=== PATIENT | female | born 1990 | race Caucasian/White ===

== ENCOUNTER 2018-07-13 02:45 | Observation (INO) | payer OTHER ==
[2018-07-13] MEDS ORDERED: ONDANSETRON 4 MG/2 ML VIAL IVP STA (03:20)
[2018-07-13] MEDS: LACTATED RINGERS 1,000 ML IV SCH ×2 (03:20→05:32)
[2018-07-13] MEDS ORDERED: BUTORPHANOL 1 MG/ML 1 ML VIAL IV STA (03:20)
[2018-07-13 04:06] LABS: Basophils % (A) 0 %; Eosinophils % (A) 0 %; HCT 36.5 % (34.0-46.0); HGB 11.5 gm/dL (11.4-16.0); Lymphocytes # (A) 1.2 k/uL (1.0-4.8); Lymphocytes % (A) 9 %; MCH 28.1 pg (25.0-35.0); MCHC 31.5 g/dL (31.0-37.0); Mean Platelet Volume 7.6; Monocytes # (A) 0.8 k/uL (0-1.0); Monocytes % (A) 6 %; Neutrophils # (A) 10.9 k/uL (1.3-7.7); Neutrophils % (A) 83 %; Platelet Count 289 k/uL (150-450); WBC 13.2 k/uL (3.8-10.6)
[2018-07-13 04:08] VITALS: RESP 18
[2018-07-13 04:09] LABS: Appearance,Urine Cloudy (Clear); Bacteria,Urine Few /hpf; Bilirubin,Urine Negative (Negative); Blood,Urine Negative (Negative); Budding Yeast,Urine Occasional /hpf; Color,Urine Yellow; Glucose,Urine (UA) Negative (Negative); Ketones,Urine 3+ (Negative); Leukocyte Esterase,Urine Large (Negative); Mucus,Urine Moderate /hpf; Nitrite,Urine Negative (Negative); Protein,Urine Negative (Negative); RBC,Urine 1 /hpf (0-5); Squamous Epithelial Cell,Urine 9 /hpf (0-4); Urobilinogen,Urine <2.0 mg/dL (<2.0); WBC,Urine 7 /hpf (0-5)
[2018-07-13] MEDS ORDERED: ONDANSETRON 4 MG/2 ML VIAL IVP PRN (04:35)
[2018-07-13] MEDS ORDERED: BUTORPHANOL 1 MG/ML 1 ML VIAL IV PRN (04:35)
[2018-07-13 05:39] VITALS: BMI 26.7
[2018-07-13] MEDS: BUTORPHANOL 1 MG/ML 1 ML VIAL IV PRN ×2 (07:22→11:26)
--- NOTE | 2018-07-13 08:28 | US ---
EXAMINATION TYPE: US OB >= 14 wk fetus DATE OF EXAM: 07/13/2018 COMPARISON: None CLINICAL HISTORY: severe painextreme pain starting Wednesday and increased yesterday, no bleeding TECHNIQUE: Transabdominal scanning GESTATIONAL AGE / DATING Physician Established: (32 weeks/6 days) EDC: 09/01/2018 Dates by LMP: LMP unknown Dates by First Scan: No previous here Dates by Current Scan: (31 weeks/6 days) EDC: 09/08/2018 SURVEY IUP: Single PLACENTA: Anterior PREVIA: No Previa BARBARA: 14.2 cm CERVICAL LENGTH (transabdominal: norm > 3.0cm): bladder not distended for urgent exam BIOMETRY PRESENTATION: Breech LIE: Longitudinal BPD: 8.4 cm 33 weeks / 4 days HC: 29.0 cm 32 weeks / 0 days AC: 30.8 cm 34 weeks / 5 days FL: 5.9 cm 30 weeks / 4 days ESTIMATED WEIGHT IN GRAMS: 2134 grams ESTIMATED WEIGHT IN LBS/OZ: 4 lbs. 11 oz. WEIGHT PERCENTAGE BASED ON ESTABLISHED DATES: 50% HC/AC: 0.9 Normal FL/AC: 19.0 Normal HEART RATE: 131 bpm RHYTHM: Normal IMPRESSION: Limited survey. Single viable intrauterine corresponding to ultrasound age 31 weeks 6 days with estimated date of delivery 09/08/2018. Anterior placenta.
--- NOTE | 2018-07-13 08:31 | US ---
EXAMINATION TYPE: US gallbladder DATE OF EXAM: 07/13/2018 COMPARISON: NONE CLINICAL HISTORY: abd pain, R/O gallstones. extreme abd pain and nausea on patient, 32wks EXAM MEASUREMENTS: Liver Length: 17.3 cm Gallbladder Wall: 0.3 cm CBD: 0.6 cm Right Kidney: 11.4 x 5.1 x 4.4 cm *limited visibility due to enlarged UT Pancreas: limited views appear wnl Liver: intercostal imaging appear wnl Gallbladder: Suspect some dependent intermediate echoes within the gallbladder, gallbladder wall thi ckness is at the upper limit of normal. Evidence for sonographic Boo's sign: no, patient has pain medication just prior to exam and was sleeping CBD: wnl Right Kidney: wnl There is no ascites. IMPRESSION: Exam is limited. No significant abnormalities evident. Common bile duct is borderline dil ated. Question some tumefactive sludge, borderline gallbladder wall thickness, consider gastroenterol ogy consult.
[2018-07-13] MEDS ORDERED: CYCLOBENZAPRINE 10 MG TAB PO STA (11:00)
[2018-07-13] MEDS ORDERED: NALOXONE 0.4 MG/ML 1 ML VIAL IV PRN (12:38)
--- NOTE | 2018-07-13 12:52 | P.HPOB ---
History of Present Illness H&P Date: 07/13/18 Chief Complaint: 32+ weeks, acute left flank pain The patient is a 28-year-old 1 para 0 admitted through triage with acute left flank pain beginning approximately 48 hours prior to presentation. She was awoken in the middle the night with the pain and reports that it waxes and wanes and is severe when it occurs. She has had some nausea and vomiting as result of the pain. She has had her care in [facility] has just recently moved to this area. She has an appointment in our office in the next 1-2 weeks. Her has reportedly been uncomplicated to this point. Laboratory workup done at the time of admission was essentially negative though she was significantly dehydrated with ketones in the urine. Obstetrical ultrasound is benign in nature and ultrasound of the gallbladder was negative. The kidneys were not examined specifically for a stone. She does localize the pain to her left flank right in the area of the kidney. status has been reassuring and she reports normal regular movement. There has been no vaginal bleeding or any other specific issues. Obstetrical history: 1 para 0 currently at 33-0/7 weeks by the EDC provided to us. We do not have a record available at this time and therefore laboratory workup is unavailable from a lab perspective. Gynecologic history: Unremarkable with no history of any infections to include STDs. Review of Systems Review of systems is confined to history of present illness. Past Medical History Past Medical History: Asthma Additional Past Medical History / Comment(s): chronic pain History of Any Multi-Drug Resistant Organisms: None Reported Past Surgical History: No Surgical Hx Reported Past Anesthesia/Blood Transfusion Reactions: No Reported Reaction Past Psychological History: No Psychological Hx Reported Smoking Status: Never smoker Past Drug Use History: None Reported - Past Family History Mother History Unknown: Yes Family Medical History: Diabetes Mellitus Medications and Allergies Home Medications Medication Instructions Recorded Confirmed Type Pnv No.95/Ferrous Fum/Folic AC 1 each PO DAILY 07/13/18 07/13/18 History [ Multivitamin Tablet] Allergies Allergy/AdvReac Type Severity Reaction Status Date / Time No Known Allergies Allergy Verified 07/13/18 03:18 Exam Vital Signs Temp Pulse Resp BP Pulse Ox 07/13/18 03:50 97.8 F 90 18 135/60 96 Intake and Output 07/12/18 07/13/18 07/13/18 22:59 06:59 14:59 Other: # Voids 3 Weight 68.492 kg In general, this is a well-developed, well-nourished white female in significant discomfort. Her heart has a regular rhythm and rate without murmur. Her lungs are clear to auscultation bilaterally in all fierro. Her abdomen is gravid, nondistended, has normal active bowel sounds, soft, nontender , and without any palpable masses aside from uterine fundus. Her extremities are without any cyanosis, clubbing, or edema and are nontender to palpation bilaterally. Her left flank does have fairly significant tenderness the but not to palpation. There is some pain that radiates around the side and towards the groin. Digital cervical examination performed by the nursing staff last night demonstrated her cervix to be closed, thick, and high. Results Result Diagrams: 07/13/18 03:20 Abnormal Lab Results - Last 24 Hours (Table) 07/13/18 07/13/18 Range/Units 03:15 03:20 WBC 13.2 H (3.8-10.6) k/uL Neutrophils # 10.9 H (1.3-7.7) k/uL Urine Appearance Cloudy H (Clear) Urine Ketones 3+ H (Negative) Ur Leukocyte Esterase Large H (Negative) Urine WBC 7 H (0-5) /hpf Ur Squamous Epith Cells 9 H (0-4) /hpf Urine Bacteria Few H (None) /hpf Urine Mucus Moderate H (None) /hpf Urine Yeast (Budding) Occasional H (None) /hpf Microbiology - Last 24 Hours (Table) 07/13/18 03:15 Urine Culture - Preliminary Urine,Clean Catch Assessment and Plan (1) Flank pain Current Visit: Yes Status: Acute Code(s): R10.9 - UNSPECIFIED ABDOMINAL PAIN SNOMED Code(s): 115248281 (2) with 32 completed weeks gestation Current Visit: Yes Status: Acute Code(s): Z3A.32 - 32 WEEKS GESTATION OF SNOMED Code(s): 8337063 Plan: The patient has been admitted for management of pain. She has had relatively aggressive hydration and in my opinion, likely has developed nephrolithiasis. Aggressive hydration will be continued. She will be allowed a regular diet. Given her degree of pain and some requirement for pain medications, a Dilaudid COAGULANT DIPPER has been ordered. I also will strain her urine. Asspecific evaluation of the kidneys has been performed, I have ordered a renal ultrasound to attempt to rule out nephrolithiasis. For the time being, she will have continuous monitoring. There does not appear to be any particular concerns. Should the pain continued to be severe, there is consideration for urology consultation. Another consideration would be a one-shot IVP as a further attempt to image the urologic collection system.
[2018-07-13] MEDS: HYDROmorphone PCA 5 MG/25 ML SYRINGE IV PRN (13:22)
--- NOTE | 2018-07-13 14:02 | US ---
EXAMINATION TYPE: US kidneys/renal and bladder DATE OF EXAM: 07/13/2018 COMPARISON: Ultrasound gallbladder same date CLINICAL HISTORY: Acute left flank pain, rule out nephrolithiasis. Left flank pain. 32 weeks pregnan t. EXAM MEASUREMENTS: Right Kidney: 10.5 x 5.0 x 4.3 cm Left Kidney: 11.0 x 5.9 x 5.3 cm Right Kidney: No hydronephrosis or masses seen, suspect extrarenal pelvis Left Kidney: Mild hydronephrosis. Unable to see sign of obstruction due to overlying bowel gas. Echog enic non-shadowing focus seen in lower pole = 0.5 cm. Bladder: mildly distended, wnl Bilateral Jets seen No masses are identified. The urinary bladder is anechoic. Bilateral ureteral jets are seen. IMPRESSION: Mild left hydronephrosis.
[2018-07-13 23:58] VITALS: BP 106/52; PULSE 101; TEMP 98.2
[2018-07-14] MEDS: LACTATED RINGERS 1,000 ML IV SCH ×10 (00:02→16:17)
[2018-07-14] MEDS: HYDROmorphone PCA 5 MG/25 ML SYRINGE IV PRN (02:52)
[2018-07-14] MEDS ORDERED: SIMETHICONE 80 MG CHEWABLE PO PRN (07:17)
[2018-07-14] MEDS ORDERED: Acetaminophen-Codeine 300-30mg TAB PO PRN (08:41)
--- NOTE | 2018-07-14 08:45 | P.PN ---
Subjective Progress Note Date: 07/14/18 Principal diagnosis: 33 weeks, acute left flank pain, presumptive nephrolithiasis The patient reports that her significant pain has become much less prominent though she still has some pain. The pain has now radiated into the left groin consistent with the passage of the stone through the ureter. She denies any recent nausea and vomiting. She also has some generalized lower abdominal pain but reports that she has some constipation as well. She is tolerating both food and liquids though has not eaten in quite some time. The fetus remains active with no apparent concerns. Objective - Vital Signs Vital signs: Vital Signs Temp 98.2 F 07/13/18 23:55 Pulse 101 H 07/13/18 23:55 Resp 18 07/13/18 23:55 BP 106/52 07/13/18 23:55 Pulse Ox 98 07/13/18 12:38 Intake & Output 07/13/18 07/14/18 07/14/18 18:59 06:59 18:59 Intake Total 250 1650 Output Total 1050 Balance 250 600 Intake: Intake, IV Titration 450 Amount Lactated Ringers 1,000 ml 450 @ 150 mls/hr IV .Q6H40M [facility] Rx#:[id number] Oral 250 1200 Output: Urine 1050 - Exam In general, this is a well-developed, well-nourished white female in no acute distress. Her abdomen is gravid, nondistended, is soft, nontender, and without any palpable masses aside from uterine fundus. She has no specific flank pain to palpation though she reports pain in this area and in the left groin. Her extremities are without any cyanosis, clubbing, or edema and are nontender to palpation bilaterally. Cervical examination is deferred. - Labs CBC & Chem 7: 07/13/18 03:20 Labs: Microbiology - Last 24 Hours (Table) 07/13/18 03:15 Urine Culture - Preliminary Urine,Clean Catch Assessment and Plan (1) Flank pain Current Visit: Yes Status: Acute Code(s): R10.9 - UNSPECIFIED ABDOMINAL PAIN SNOMED Code(s): 498539888 (2) with 32 completed weeks gestation Current Visit: Yes Status: Acute Code(s): Z3A.32 - 32 WEEKS GESTATION OF SNOMED Code(s): 8245598 Plan: The presumptive diagnosis of nephrolithiasis remains in place. The imaging studies by ultrasound were equivocal, but her clinical history is consistent with this diagnosis. We will continue aggressive hydration but remove the CONVERTING TECHNICIAN and try oral pain medications. Tylenol 3 has been prescribed. I have strongly encouraged her to ambulate in the halls today. I also encouraged her to try solid food. Should she be able to ambulate, manage her pain orally, and tolerate a regular diet, she will likely be discharged home this afternoon to continue aggressive home oral hydration and then follow-up in the office.
[2018-07-14] MEDS ORDERED: SIMETHICONE 80 MG CHEWABLE PO SCH (09:00)
[2018-07-14] MEDS: Acetaminophen-Codeine 300-30mg TAB PO PRN ×3 (10:30→18:09)
[2018-07-14] MEDS ORDERED: BISACODYL 10 MG SUPP RECTAL STA (11:59)
[2018-07-14] MEDS ORDERED: SENNOSIDES-DOCUSATE SODIUM 1 EACH TAB PO STA (15:56)
--- NOTE | 2018-07-14 18:00 | P.DS ---
Providers Date of admission: 07/13/18 04:53 Expected date of discharge: 07/14/18 Attending physician: Cherelle Escalera Primary care physician: Stated None - Discharge Diagnosis(es) (1) Flank pain Current Visit: Yes Status: Acute (2) with 32 completed weeks gestation Current Visit: Yes Status: Acute Hospital Course: The patient is a 28-year-old 1 para 0 admitted through triage with severe and acute left flank pain beginning approximately 24-48 hours prior to presentation. She is otherwise at approximately 33 weeks gestation at this time and has had care elsewhere and recently moved to this area. She does have an office appointment within the next week or 2 but has only just presented to [place]. Given her degree of pain, she was admitted for observation. There were no signs of any concerns nor any specific concerns. OB ultrasound was entirely negative. Ultrasound of the liver was negative. Ultimately the ultrasound of the kidneys suggested the possibility of a stone in the left eye was. Discussion with the patient demonstrated the pain to initially be absolutely in the left flank and then radiating around the hip crest towards the groin in the direct path of the left ureter. The diagnosis of presumptive nephrolithiasis was made. She was started on a Dilaudid LINING PARTS SEWER and continued with aggressive IV hydration. Approximately 12 hours after admission she had significant decrease in her pain acuity. She was able to be up and the moving about and began to tolerate both liquids and solids. By the morning of hospital day #2, her LINING PARTS SEWER was discontinued and she was placed on oral Tylenol No. 3 which she tolerated. For the entirety of the remainder of that day she used only 2 tablets of Tylenol No. 3. heart tones remained reassuring and the patient reported significant clinical improvement. As she was performing all activities of daily living, she was deemed stable for discharge and was discharged home to follow-up in the office next week for a recheck of the kidney stones and the following week as previously scheduled for routine OB intake. She is to call for any significantly increased pain or concerns. She understood her instructions and agrees follow up as noted above. Discharge medications included continued vitamins as well as a prescription for Tylenol 3, 1- 2 by mouth every 6 hours when necessary pain, #12 dispensed with no refills. Procedures: #1. IV hydration #2. IV pain control #3. Renal ultrasound #4. Gallbladder ultrasound #5. Obstetrical ultrasound Patient Condition at Discharge: Stable Plan - Discharge Summary New Discharge Prescriptions: No Action Pnv No.95/Ferrous Fum/Folic AC [ Multivitamin Tablet] 1 each PO DAILY Discharge Medication List Pnv No.95/Ferrous Fum/Folic AC [ Multivitamin Tablet] 1 each PO DAILY [History] Follow up Appointment(s)/Referral(s): Stuart Mary MD [STAFF PHYSICIAN] - 1 Week Discharge Disposition: HOME SELF-CARE
== END 2018-07-14 18:40 | disposition home or self-care (01) ==
LOC: FBPOP 02:45 → 4FBP 04:53
PROVIDERS: ADMIT Obstetrics & Gynecology; ATTEND Obstetrics & Gynecology
DX: O99.89 Other specified diseases and conditions complicating pregnancy, childbirth and the puerperium (principal); N13.30 Unspecified hydronephrosis; O99.283 Endocrine, nutritional and metabolic diseases complicating pregnancy, third trimester; E86.0 Dehydration; O99.513 Diseases of the respiratory system complicating pregnancy, third trimester; J45.909 Unspecified asthma, uncomplicated; K59.00 Constipation, unspecified; Z3A.32 32 weeks gestation of pregnancy; Z83.3 Family history of diabetes mellitus
CPT/HCPCS: 59025; 96376 ×2; 99214; 96374; 96375; 85025; 81001; 87086; 76805; 76770; 76705; G0378 ×2; J0595; J2405; J1170 ×2; 96361

== ENCOUNTER 2018-07-14 23:35 | Inpatient (IN) | payer OTHER ==
[2018-07-14] MEDS ORDERED: LACTATED RINGERS 1,000 ML IV SCH (23:45)
[2018-07-14] MEDS ORDERED: HYDROmorphone 1 MG/ML 1 ML SYRINGE IVP STA (23:58)
[2018-07-15] MEDS: LACTATED RINGERS 1,000 ML IV SCH ×4 (00:39→16:33)
[2018-07-15 01:53] LABS: Appearance,Urine Clear (Clear); Bacteria,Urine Occasional /hpf; Bilirubin,Urine Negative (Negative); Blood,Urine Negative (Negative); Color,Urine Yellow; Glucose,Urine (UA) Negative (Negative); Ketones,Urine 2+ (Negative); Leukocyte Esterase,Urine Small (Negative); Nitrite,Urine Negative (Negative); Protein,Urine Negative (Negative); RBC,Urine 1 /hpf (0-5); Specific Gravity,Urine 1.005 (1.001-1.035); Squamous Epithelial Cell,Urine 1 /hpf (0-4); Urobilinogen,Urine <2.0 mg/dL (<2.0); WBC,Urine 3 /hpf (0-5)
[2018-07-15] MEDS ORDERED: HYDROmorphone 1 MG/ML 1 ML SYRINGE IVP STA (03:49)
[2018-07-15] MEDS ORDERED: NALOXONE 0.4 MG/ML 1 ML VIAL IV PRN (06:45)
[2018-07-15] MEDS ORDERED: HYDROmorphone PCA 5 MG/25 ML SYRINGE IV PRN (06:45)
--- NOTE | 2018-07-15 07:41 | P.GSCN ---
History of Present Illness Consult date: 07/15/18 History of present illness: The patient is a 28 year Old female, 1 para 0, gestation 33 weeks. He for several days has had left flank pain. She presented to Dr. Barone who suspected she had a stone. An ultrasound showed some mild hydronephrosis on the left side. There is no hydronephrosis on the right side. In such that she came back to the hospital. No history of stones. Her urine is fairly nonspecific and not infected. SHe is constipated. Review of Systems All systems: negative - Constitutional Denies fever, Denies weight loss - EENT Eyes: denies blurred vision Ears, nose, mouth and throat: Denies dysphagia - Cardiovascular Denies chest pain, Denies shortness of breath - Respiratory Denies cough, Denies 7 - Gastrointestinal Reports as per HPI - Genitourinary Genitourinary: Denies dysuria, Denies hematuria - Integumentary Denies rash, Denies unusual bruising - Neurological Denies headaches, Denies syncope - Hematologic/Lymphatic Denies easy bleeding, Denies easy bruising Past Medical History Past Medical History: Asthma Additional Past Medical History / Comment(s): chronic pain History of Any Multi-Drug Resistant Organisms: None Reported Past Surgical History: No Surgical Hx Reported Past Anesthesia/Blood Transfusion Reactions: No Reported Reaction Smoking Status: Never smoker - Past Family History Mother History Unknown: Yes Family Medical History: Diabetes Mellitus Medications and Allergies Home Medications Medication Instructions Recorded Confirmed Type Pnv No.95/Ferrous Fum/Folic AC 1 each PO DAILY 07/13/18 07/14/18 History [ Multivitamin Tablet] Acetaminophen-Codeine 300-30mg 2 tab PO Q6H PRN 07/14/18 07/14/18 History [Tylenol w/codeine #3] Allergies Allergy/AdvReac Type Severity Reaction Status Date / Time No Known Allergies Allergy Verified 07/14/18 23:57 Surgical - Exam Vital Signs Temp Pulse Resp BP Pulse Ox 98.2 F 83 18 126/81 97 07/14/18 23:58 07/14/18 23:58 07/14/18 23:58 07/14/18 23:58 07/14/18 23:58 - General well developed, well nourished, moderate distress - Eyes PERRL - ENT no hearing loss - Neck trachea midline - Respiratory normal expansion, normal respiratory effort - Cardiovascular Rhythm: regular - Abdomen 33 weeks gestation Abdomen: soft, tender - Integumentary no rash - Neurologic normal coordination, normal sensation - Musculoskeletal normal gait, normal posture - Psychiatric oriented to time, oriented to person, oriented to place, speech is normal, memory intact Results - Labs Abnormal Lab Results - Last 24 Hours (Table) 07/15/18 Range/Units 01:08 Urine Ketones 2+ H (Negative) Ur Leukocyte Esterase Small H (Negative) Urine Bacteria Occasional H (None) /hpf - Imaging US - kidney/bladder: report reviewed, image reviewed Assessment and Plan Assessment: Impression: Left-sided flank pain probably due to ureteral calculus versus constipation. 33 week . Recommendations: Your doing with IV fluids and pain control. Once her pain is controlled she can be discharged home from urologic standpoint. I prefer not to intervene if it all possible however the pain persists she may need her testing and/or potential stone manipulation to control the discomfort. I would work on her bowels to make sure that is not contributing to this discomfort.
[2018-07-15 08:17] VITALS: BMI 26.7
--- NOTE | 2018-07-15 11:26 | P.HPOB ---
History of Present Illness H&P Date: 07/15/18 Chief Complaint: 33+ weeks, acute left flank pain, presumptive nephrolithiasis The patient is a 28-year-old 1 para 0 admitted with acute left flank pain starting approximately 5 days ago. She has just recently moved from the [facility] where she had previous obstetrical care and has an appointment scheduled with our office but has not yet been seen there. Her pain began acutely on Wednesday and she was seen in [place] on Wednesday at which time no intervention was undertaken. She then traveled to the [place] area where she has moved and had the pain continued to be significant leading to presentation to triage. She was admitted for approximately 48 hours where she was treated aggressively with hydration and with a ADULT LITERACY INSTRUCTOR for pain control. Her pain had significantly improved yesterday and she was deemed stable for discharge and was discharged home with oral pain medications. Approximately 6- 8 hours after discharge, her pain became more acute and oral pain medications were unable to control the pain. She returned to the hospital at which time she was readmitted. Urinalysis demonstrated moderate dehydration. She also complains of fairly significant constipation for which she did receive a Dulcolax suppository during her previous admission. Results were fairly minimal. At this time, she has less significant pain but continues to complain of moderate discomfort. It does seem to be exacerbated by activity. She has not had a bowel movement by her report since Wednesday though, as noted above, she did have some results from a Dulcolax suppository yesterday. Urology has seen the patient and agrees with the plan as it will be outlined below. The patient denies any psychosocial concerns and does have a safe environment at home though there still in the process of unpacking. Obstetrical history: 1 para 0 with current statistics listed above. She has no reported complications prior to this though we are not in receipt of her previous records. They will be obtained today if at all possible. Gynecologic history: Unremarkable with no history of any infections to include STDs. Review of Systems Review of systems is confined to history of present illness. Past Medical History Past Medical History: Asthma Additional Past Medical History / Comment(s): chronic pain History of Any Multi-Drug Resistant Organisms: None Reported Past Surgical History: No Surgical Hx Reported Additional Past Surgical History / Comment(s): wisdom teeth removal Past Anesthesia/Blood Transfusion Reactions: No Reported Reaction Smoking Status: Never smoker - Past Family History Mother History Unknown: Yes Family Medical History: Diabetes Mellitus Medications and Allergies Home Medications Medication Instructions Recorded Confirmed Type Pnv No.95/Ferrous Fum/Folic AC 1 each PO DAILY 07/13/18 07/14/18 History [ Multivitamin Tablet] Acetaminophen-Codeine 300-30mg 2 tab PO Q6H PRN 07/14/18 07/14/18 History [Tylenol w/codeine #3] Allergies Allergy/AdvReac Type Severity Reaction Status Date / Time No Known Allergies Allergy Verified 07/14/18 23:57 Exam Vital Signs Temp Pulse Resp BP Pulse Ox 07/15/18 06:51 98.3 F 84 16 99/55 96 07/14/18 23:58 98.2 F 83 18 126/81 97 Intake and Output 07/14/18 07/15/18 07/15/18 22:59 06:59 14:59 Intake Total 1999 Balance 1999 Intake: Intake, IV Titration 2000 Amount Lactated Ringers 1,000 ml 1000 @ 150 mls/hr IV .Q6H40M [facility] Rx#:[id number] Lactated Ringers 1,000 ml 1000 @ 999 mls/hr IV .Q1H1M [facility] Rx#:[id number] Other: # Voids 1 Weight 68.492 kg In general, this is a well-developed, well-nourished white female in no acute distress. Her heart has a regular rhythm and rate without murmur. Her lungs are clear to auscultation bilaterally in all fierro. Her abdomen is gravid, nondistended, has normal active bowel sounds, soft, nontender, and without any palpable masses aside from uterine fundus. Her extremities without any cyanosis , clubbing, or edema and are nontender to palpation bilaterally. Her back demonstrates no significant CVA tenderness though she does report the course of the pain is in the general course of the left ureter. Results Abnormal Lab Results - Last 24 Hours (Table) 07/15/18 Range/Units 01:08 Urine Ketones 2+ H (Negative) Ur Leukocyte Esterase Small H (Negative) Urine Bacteria Occasional H (None) /hpf Assessment and Plan (1) 33 weeks gestation of Current Visit: Yes Status: Acute Code(s): Z3A.33 - 33 WEEKS GESTATION OF SNOMED Code(s): 90664560 (2) Flank pain Current Visit: Yes Status: Acute Code(s): R10.9 - UNSPECIFIED ABDOMINAL PAIN SNOMED Code(s): 903899567 Plan: Urology consult has been obtained and they agree with the plan. There is no implant intervention from their perspective at this time. We will continue with aggressive rehydration and IV pain control until such time as the stone passes or the pain is relieved in either case. Some consideration could be given to a one-shot IVP which would only serve to confirm the diagnosis of our current working diagnosis. I will retrieve the records from her previous certified alcohol drug counselor today. We will work towards controlling her pain or early and discharging her at the earliest possible time. We will continue to strain her urine. A CBC is pending at this time. Urinalysis failed to demonstrate any blood in the urine but to history and physical findings are consistent with the diagnosis of nephrolithiasis. I will also begin her on treatment with MiraLAX daily as well as stool softeners.
[2018-07-15 11:34] LABS: Basophils % (A) 0 %; Eosinophils # (A) 0.1 k/uL (0-0.7); Eosinophils % (A) 0 %; HCT 33.9 % (34.0-46.0); HGB 10.6 gm/dL (11.4-16.0); Hypochromasia Moderate; Lymphocytes # (A) 1.3 k/uL (1.0-4.8); Lymphocytes % (A) 10 %; MCH 29.1 pg (25.0-35.0); MCHC 31.2 g/dL (31.0-37.0); MCV 93.2 fL (80.0-100.0); Mean Platelet Volume 9.6; Monocytes # (A) 1.2 k/uL (0-1.0); Monocytes % (A) 9 %; Neutrophils % (A) 78 %; Platelet Count 243 k/uL (150-450); RBC 3.64 m/uL (3.80-5.40); RDW 14.3 % (11.5-15.5); WBC 12.9 k/uL (3.8-10.6)
[2018-07-15] MEDS: POLYETHYLENE GLYCOL 3350 17 GM POWD.PACK PO SCH (12:07)
[2018-07-15] MEDS: SENNOSIDES 8.6 MG TAB PO SCH (21:47)
[2018-07-16] MEDS: LACTATED RINGERS 1,000 ML IV SCH ×2 (00:15→08:11)
--- NOTE | 2018-07-16 09:35 | P.PN ---
Progress Note - Text Progress Note Date: 07/16/18 The patient is afebrile. She continues to have intermittent severe pain in the left flank however at times her pain is in the mid back and right side as well. The patient is presumed to have her pain on the basis of a left ureteral calculus and I discussed options including further observation, placement of a double-J catheter or ureteroscopy with lithotripsy with her. Due to the persistence of her pain a KUB will be obtained today. If she has a small distal ureteral calculus I believe that further observation would be the best option but if her pain is from a larger calculus more proximally then placement of a double-J catheter may be a better option.
[2018-07-16] MEDS: SENNOSIDES 8.6 MG TAB PO SCH ×2 (10:42→20:50)
[2018-07-16] MEDS: POLYETHYLENE GLYCOL 3350 17 GM POWD.PACK PO SCH (10:42)
--- NOTE | 2018-07-16 10:42 | XR ---
EXAMINATION TYPE: XR KUB , 3 VIEWS DATE OF EXAM ORDERED: 07/16/2018 HISTORY: Left hydronephrosis-possible left ureteral calculu. COMPARISON: None. FINDINGS: There are dilated loops of colon in the upper abdomen with several air-fluid levels. There is no free air. There are bones noted within the pelvis. The study is such that renal calculi would not be visualized. There is a right-sided pleural effusion and right basilar airspace disease. IMPRESSION: 1. . 2. RIGHT PLEURAL EFFUSION AND RIGHT BASILAR AIRSPACE DISEASE. 3. FINDINGS MAY REFLECT COLONIC ILEUS OR BE THE RESULT OF . 4. THIS STUDY IS NOT ADEQUATE TO EXCLUDE RENAL CALCULI.
--- NOTE | 2018-07-16 10:58 | P.PN ---
Subjective Progress Note Date: 07/16/18 Principal diagnosis: Flank and back pain She reports ongoing episodes of severe left flank pain now radiating into the right back area. The EXCHANGE TROUBLE SHOOTER dilated does not improve her pain. She denies uterine cramping, vaginal bleeding, leakage of fluids or hematuria. She has still not yet had a bowel movement despite MiraLAX and stool softeners. Good movement. KUB is unable to show presence or absence of renal calculi however there is a right pleural effusion and possible right airspace disease. She does report since her admission some pain with inspiration. She denies shortness of breath or cough. Objective - Vital Signs Vital signs: Vital Signs Temp 97.7 F 07/16/18 07:44 Pulse 80 07/16/18 07:44 Resp 18 07/16/18 07:44 BP 105/68 07/16/18 07:44 Pulse Ox 93 L 07/16/18 07:44 Intake & Output 07/15/18 07/16/18 07/16/18 18:59 06:59 18:59 Output Total 375 1200 Balance -375 -1200 Output: Urine 375 1200 Other: # Voids 500 2 - Constitutional General appearance: Present: average body habitus, mild distress - Respiratory Details: Breathing not labored - Gastrointestinal Gastrointestinal Comment(s): Abdomen gravid and soft. Tenderness to palpation along the left flank and axillary line. Mild fundal tenderness. She did have an episode of pain while I was examining her and her uterus felt soft, not consistent with a contraction. - Psychiatric Psychiatric: Present: appropriate affect - Labs CBC & Chem 7: 07/15/18 11:08 Labs: Abnormal Lab Results - Last 24 Hours (Table) 07/15/18 Range/Units 11:08 WBC 12.9 H (3.8-10.6) k/uL RBC 3.64 L (3.80-5.40) m/uL Hgb 10.6 L (11.4-16.0) gm/dL Hct 33.9 L (34.0-46.0) % Neutrophils # 10.0 H (1.3-7.7) k/uL Monocytes # 1.2 H (0-1.0) k/uL - Imaging and Cardiology Abdominal x-ray: report reviewed, image reviewed Assessment and Plan (1) Pleural effusion Narrative/Plan: Decrease aggressive IV fluid rehydration, to avoid fluid overload in the setting of third trimester . Pulse ox and respiratory status normal at this time. Consider medicine consultation. Plan repeat chest x-ray in the a.m. Current Visit: Yes Status: Acute Code(s): J90 - PLEURAL EFFUSION, NOT ELSEWHERE CLASSIFIED SNOMED Code(s): 61806270 (2) 33 weeks gestation of Narrative/Plan: status currently reassuring by external monitoring. No evidence of labor. Current Visit: Yes Status: Acute Code(s): Z3A.33 - 33 WEEKS GESTATION OF SNOMED Code(s): 06747274 (3) Flank pain Narrative/Plan: Pain most consistent with renal colic. Appreciate Dr. Holm and Dr. timo valenzuela's input. KUB findings are as above. As her pain does not seem to be improving and KUB is nondiagnostic for renal calculus, I agree with plan for consideration of left ureteral stenting for pain control. Will defer ultimately to their opinion on the matter. I have discussed with the patient pros and cons of the procedure and she agrees to proceed if that is what is recommended. Current Visit: Yes Status: Acute Code(s): R10.9 - UNSPECIFIED ABDOMINAL PAIN SNOMED Code(s): 302563799
[2018-07-16] MEDS ORDERED: LACTATED RINGERS 500 ML IV SCH (11:00)
[2018-07-16] MEDS: BUTORPHANOL 1 MG/ML 1 ML VIAL IV PRN ×4 (12:34→20:43)
--- NOTE | 2018-07-16 12:34 | US ---
EXAMINATION TYPE: US venous doppler duplex LE DATE OF EXAM: 07/16/2018 11:16 AM COMPARISON: NONE CLINICAL HISTORY: 33 wk preg r/o DVT, extensive leg swelling SIDE PERFORMED: Bilateral TECHNIQUE: The lower extremity deep venous system is examined utilizing real time linear array sonog wicho with graded compression, doppler sonography and color-flow sonography. VESSELS IMAGED: External Iliac Vein (EIV) Common Femoral Vein Deep Femoral Vein Greater Saphenous Vein * Femoral Vein Popliteal Vein Small Saphenous Vein * Proximal Calf Veins (* superficial vessels) Right Leg: Negative for DVT Left Leg: Negative for DVT Patient has severe swelling in legs with pitting edema. No popliteal fossa lesion is seen. IMPRESSION: THIS EXAMINATION IS NEGATIVE FOR DVT IN BOTH LEGS.
--- NOTE | 2018-07-16 17:41 | ECHOF ---
Referral Reason:33 wk preg, pleural effusion, r/o cardiomyopathy MEASUREMENTS -------- HEIGHT: 160.0 cm WEIGHT: 68.5 kg BP: IVSd: 0.9 cm (0.6 - 1.1) LVIDd: 4.6 cm (3.9 - 5.3) LVPWd: 1.1 cm (0.6 - 1.1) IVSs: 1.4 cm LVIDs: 2.9 cm LVPWs: 1.4 cm LA Diam: 3.8 cm (2.7 - 3.8) RVIDd: 2.3 cm (< 3.3) Ao Diam: 2.1 cm (2.0 - 3.7) LA Diam: 3.5 cm (2.7 - 3.8) AV Cusp: 1.5 cm (1.5 - 2.6) EPSS: 0.3 cm MV E Willis: 1.09 m/s MV DecT: 219 ms MV A Willis: 0.71 m/s MV E/A Ratio: 1.53 RAP: 5.00 mmHg RVSP: 41.17 mmHg MV EF SLOPE: 141.05 mm/s (70 - 150) MV EXCURSION: 15.88 mm (> 18.000) FINDINGS -------- Sinus rhythm. This was a technically good study. LV size, wall thickness and systolic function are normal, with an EF greater than 55%. The left alysa tricular size is normal. The right ventricle is normal in size. The left atrial size is normal. The right atrial size is normal. The aortic valve is trileaflet, and appears structurally normal. No aortic stenosis or regurgitation. Mild mitral regurgitation is present. Zsdw-yq-towwnstm tricuspid regurgitation present. There is mild pulmonary hypertension. The right ventricular systolic pressure, as measured by Doppler, is 41.17mmHg. Trace/mild (physiologic) pulmonic regurgitation. The aortic root size is normal. There is a small, generalized pericardial effusion present. CONCLUSIONS -------- 1. LV size, wall thickness and systolic function are normal, with an EF greater than 55%. 2. The left ventricular size is normal. 3. The right ventricle is normal in size. 4. The left atrial size is normal. 5. The right atrial size is normal. 6. The aortic valve is trileaflet, and appears structurally normal. No aortic stenosis or regurgitati on. 7. Mild mitral regurgitation is present. 8. Rkrd-tl-roqxunqq tricuspid regurgitation present. 9. There is mild pulmonary hypertension. 10. The right ventricular systolic pressure, as measured by Doppler, is 41.17mmHg. 11. Trace/mild (physiologic) pulmonic regurgitation. 12. The aortic root size is normal. 13. There is a small, generalized pericardial effusion present. SIGN FABRICATOR: Deedee Mc RDCS
[2018-07-16] MEDS: BISACODYL 10 MG SUPP RECTAL SCH (18:03)
[2018-07-17] MEDS: BUTORPHANOL 1 MG/ML 1 ML VIAL IV PRN (02:08)
--- NOTE | 2018-07-17 10:33 | P.PN ---
Progress Note - Text Progress Note Date: 07/17/18 The patient says that she is much more comfortable than she was yesterday and has had only mild discomfort in her left flank through the night. She is hungry and wants to go home if possible. Duplex ultrasound and echocardiogram were both negative. I reviewed the patient's KUB. This study was underpenetrated but a definite calculus was not visualized along the course of the left ureter. From my standpoint if the patient is comfortable she could be discharged on analgesics however she is aware that if her pain is from a ureteral calculus it may recur.
--- NOTE | 2018-07-17 10:36 | P.DS ---
Providers Date of admission: 07/15/18 06:46 Expected date of discharge: 07/17/18 Attending physician: Stuart Mary Consults: 07/15/18 06:49 Consult Physician Routine Consulting Provider: Fito Valdes Consult Reason/Comments: rule out kidney stone Do you want consulting provider notified?: Yes Primary care physician: Stated None - Discharge Diagnosis(es) (1) Pleural effusion Current Visit: Yes Status: Acute (2) 33 weeks gestation of Current Visit: Yes Status: Acute (3) Flank pain Current Visit: Yes Status: Acute Hospital Course: This is a 28-year-old 1 para 0 woman at 33+ weeks gestation who was admitted with persistent worsening left flank pain. She had had a recent previous admission for the same symptoms and was diagnosed with presumptive renal colic, probable passing kidney stone. She failed outpatient management with oral pain medications and repaired presented. On admission she complained of severe waxing and waning left sided abdominal pain that occasionally it into the right back area. She denied vaginal bleeding. She is constipated. She is not had a bowel movement for 5 days. She denied contractions and reported good movement. She was given aggressive IV fluid management and pain control with IV Dilaudid BEVERAGE INSPECTION MACHINE TENDER. She continued to have pain and a KUB was ordered to assess for a large obstructing kidney stone. This was nondiagnostic for kidney stone however she was noted to have a right pleural effusion. She was therefore worked up for DVTs and possible cardiomyopathy of . She had normal bilateral lower extremity Dopplers. Echocardiogram was essentially normal although there was a small pericardial effusion. Her IV fluids were discontinued. Her vital signs were stable and her oxygen saturations were greater than 95%. She is not tachycardic. Some thought was given to possible ureteral stent placement to empirically treat her pain however by this morning she reports significant decrease in her pain. She was able to sleep well overnight and did not require IV Stadol. She was passing some gas and had a small bowel movement. Based on this clinical improvement the decision was made to hold off on any urologic procedures. monitoring throughout her stay was reassuring. She had irregular contractions however no concerns for labor. She was therefore discharged home for close follow-up in the office. Precautions were reviewed. She is instructed to return with any vaginal bleeding, severe abdominal or pelvic pain, leakage of fluids or decreased movement. Bowel management is reviewed with her and she is encouraged to continue with high- fiber diet, stool softeners and MiraLAX or Dulcolax suppository when necessary. She is recommended to continue to wear her TOMMY hose for DVT prophylaxis. Pertinent Studies: KUB, echocardiogram, lower extremity Doppler studies Patient Condition at Discharge: Good Plan - Discharge Summary New Discharge Prescriptions: No Action Pnv No.95/Ferrous Fum/Folic AC [ Multivitamin Tablet] 1 each PO DAILY Acetaminophen-Codeine 300-30mg [Tylenol w/codeine #3] 2 tab PO Q6H PRN PRN Reason: Pain Discharge Medication List Pnv No.95/Ferrous Fum/Folic AC [ Multivitamin Tablet] 1 each PO DAILY [History] Acetaminophen-Codeine 300-30mg [Tylenol w/codeine #3] 2 tab PO Q6H PRN 07/14/18 [History] Follow up Appointment(s)/Referral(s): Sutart Mary MD [STAFF PHYSICIAN] - 1-2 Days Discharge Disposition: HOME SELF-CARE
[2018-07-17] MEDS: SENNOSIDES 8.6 MG TAB PO SCH (10:51)
[2018-07-17] MEDS: POLYETHYLENE GLYCOL 3350 17 GM POWD.PACK PO SCH (10:52)
[2018-07-17] MEDS: BISACODYL 10 MG SUPP RECTAL SCH (10:52)
[2018-07-17 11:28] VITALS: BP 128/76; PULSE 77; RESP 18; TEMP 98.3
== END 2018-07-17 11:15 | disposition home or self-care (01) | DRG 781 ==
LOC: FBPOP 23:35 → 4FBP 07-15 06:46
PROVIDERS: ADMIT Obstetrics & Gynecology; ATTEND Obstetrics & Gynecology
DX: O99.89 Other specified diseases and conditions complicating pregnancy, childbirth and the puerperium (principal); O26.833 Pregnancy related renal disease, third trimester; N13.2 Hydronephrosis with renal and ureteral calculous obstruction; J90 Pleural effusion, not elsewhere classified; I31.3 Pericardial effusion (noninflammatory); E86.0 Dehydration; R10.9 Unspecified abdominal pain; O12.03 Gestational edema, third trimester; G89.29 Other chronic pain; O99.513 Diseases of the respiratory system complicating pregnancy, third trimester; J45.909 Unspecified asthma, uncomplicated; O99.283 Endocrine, nutritional and metabolic diseases complicating pregnancy, third trimester; O99.613 Diseases of the digestive system complicating pregnancy, third trimester; K59.00 Constipation, unspecified; Z3A.33 33 weeks gestation of pregnancy; Z87.442 Personal history of urinary calculi; Z83.3 Family history of diabetes mellitus
CPT/HCPCS: 59025; 74018; 81001; 85025; 93306; 93970; 96361; 96374; 96375; 99214

== ENCOUNTER 2018-07-25 23:38 | Inpatient (IN) | payer OTHER ==
[2018-07-25] MEDS ORDERED: OXYTOCIN 20 UNITS/1000 ML NS 1,000 ML IV SCH (23:45)
[2018-07-25] MEDS ORDERED: METHYLERGONOVINE 0.2 MG/ML 1 ML AMP IM PRN (23:57)
[2018-07-25] MEDS ORDERED: PENICILLIN G POTASSIUM 5,000,000 UNIT in DEXTROSE 5% IN WATER 100 ML IVPB STA ×2 (23:57)
[2018-07-25] MEDS ORDERED: TERBUTALINE 1 MG/ML VIAL SQ PRN (23:57)
[2018-07-25] MEDS ORDERED: OXYTOCIN 10 UNIT/ML 1 ML VIAL IM PRN (23:57)
[2018-07-25] MEDS ORDERED: LIDOCAINE 1% (PF) 10 MG/ML (30 ML SDV) SQ PRN (23:57)
[2018-07-25] MEDS ORDERED: CARBOPROST TROMETHAMINE 250 MCG/ML 1 ML AMP IM PRN (23:57)
--- NOTE | 2018-07-26 00:13 | P.HPOB ---
History of Present Illness H&P Date: 07/25/18 Chief Complaint: 34-4/7 weeks, rupture of membranes, active labor The patient is a 28-year-old 1 para 0 admitted at 34-4/7 weeks by good dating parameters. She is new to our practice having had was for care in [facility] and recently moved to this area. Her has reportedly been uncomplicated until her move here at which time she was admitted on 2 separate occasions for presumptive left nephrolithiasis. The pain from this had some entirely resolved. She did develop pleural effusion from aggressive rehydration but had a negative cardiac workup. She presents this evening with a report of leaking of fluid and active regular pain and is found to be 4-5 cm dilated with documented spontaneous rupture of membranes. Group B strep status is not available at this time. Obstetrical history: 1 para 0 with current statistics listed in history of present illness. EDC of 09/01/2018 was established by last menstrual period and confirmed by 10 week ultrasound. Laboratory workup done traits of blood type of O+ with a negative antibody screen. Rubella status is immune. The remainder of laboratory workup was within normal limits. One hour Glucola was normal and group B strep status has not yet been done. Gynecologic history: Unremarkable with no history of any infections to include STDs. Review of Systems Review of systems is confined to history of present illness. Past Medical History Past Medical History: Asthma Additional Past Medical History / Comment(s): chronic pain History of Any Multi-Drug Resistant Organisms: None Reported Past Surgical History: No Surgical Hx Reported Additional Past Surgical History / Comment(s): wisdom teeth removal Past Anesthesia/Blood Transfusion Reactions: No Reported Reaction Smoking Status: Never smoker - Past Family History Mother History Unknown: Yes Family Medical History: Diabetes Mellitus Medications and Allergies Home Medications Medication Instructions Recorded Confirmed Type Pnv No.95/Ferrous Fum/Folic AC 1 each PO DAILY 07/13/18 07/25/18 History [ Multivitamin Tablet] Acetaminophen-Codeine 300-30mg 2 tab PO Q6H PRN 07/14/18 07/25/18 History [Tylenol w/codeine #3] Allergies Allergy/AdvReac Type Severity Reaction Status Date / Time No Known Allergies Allergy Verified 07/25/18 23:42 Exam Intake and Output 07/25/18 07/25/18 07/26/18 14:59 22:59 06:59 Other: Weight 72.575 kg In general, this is a well-developed, well-nourished white female in discomfort as she is in early active labor. Her heart has a regular rhythm and rate without murmur. Her lungs are clear to auscultation bilaterally in all fierro. Her abdomen is gravid, nondistended, has normal active bowel sounds, is soft, nontender, and without any palpable masses aside from uterine fundus. Her extremities are without any cyanosis, clubbing, or edema and are nontender to palpation bilaterally. Digital cervical examination performed by the nursing staff demonstrates her surgery 4-5 cm dilated, 60% effaced, with the presentation at -2 station. Bedside ultrasound confirms breech presentation.. Spontaneous rupture of membranes is documented. Assessment and Plan (1) premature rupture of membranes Current Visit: Yes Status: Acute Code(s): O42.919 - PRETRM CLARENCE ROM, UNSP TIME BETW RUPT AND ONST LABR, UNSP TRI SNOMED Code(s): 156953939 (2) 34 weeks gestation of Current Visit: Yes Status: Acute Code(s): Z3A.34 - 34 WEEKS GESTATION OF SNOMED Code(s): 88752284 (3) Active labor Current Visit: Yes Status: Acute Code(s): O60.10X0 - LABOR W DELIVERY, UNSP TRIMESTER, UNSP SNOMED Code(s): 6597507 (4) Breech presentation Current Visit: Yes Status: Acute Code(s): O32.1XX0 - MATERNAL CARE FOR BREECH PRESENTATION, UNSP SNOMED Code(s): 6515395 Plan: The patient is admitted for active management of labor. I have discussed with her that it is quite likely that the infant will be transferred to a tertiary care institution for issues of prematurity. As the patient is currently unstable for transfer to a tertiary care institution, delivery will be carried out here. Recent cervical check in active labor and bedside ultrasound performed by myself confirmed breech presentation. The patient will be taken to the operating room for urgent primary low-transverse section.
[2018-07-26] MEDS ORDERED: LACTATED RINGERS 1,000 ML IV ONE (00:19)
[2018-07-26] MEDS ORDERED: CITRIC ACID-SODIUM CITRATE 15 ML CUP PO ONE (00:19)
[2018-07-26] MEDS ORDERED: fentaNYL (PF) 50 MCG/ML 2 ML AMP ONE (00:25)
[2018-07-26] MEDS ORDERED: MIDAZOLAM 2 MG/2 ML VIAL ONE (00:25)
[2018-07-26] MEDS ORDERED: SUCCINYLCHOLINE CHLORIDE 100 MG/5 ML SYR IV ONE (00:25)
[2018-07-26] MEDS ORDERED: PROPOFOL 10 MG/ML 20 ML VIAL IV ONE (00:25)
[2018-07-26] MEDS ORDERED: ONDANSETRON 4 MG/2 ML VIAL ONE (00:25)
[2018-07-26 00:26] LABS: Basophils % (A) 0 %; Eosinophils # (A) 0.2 k/uL (0-0.7); Eosinophils % (A) 1 %; HCT 36.6 % (34.0-46.0); HGB 12.1 gm/dL (11.4-16.0); Lymphocytes # (A) 2.7 k/uL (1.0-4.8); Lymphocytes % (A) 19 %; MCHC 33.1 g/dL (31.0-37.0); Mean Platelet Volume 7.5; Monocytes # (A) 1.2 k/uL (0-1.0); Monocytes % (A) 9 %; Neutrophils # (A) 9.7 k/uL (1.3-7.7); Neutrophils % (A) 68 %; Platelet Count 396 k/uL (150-450); RBC 4.18 m/uL (3.80-5.40); WBC 14.3 k/uL (3.8-10.6)
[2018-07-26 00:27] LABS: MCV 87.5 fL (80.0-100.0)
[2018-07-26] MEDS ORDERED: LACTATED RINGERS 1,000 ML IV SCH ×2 (00:30→01:15)
[2018-07-26] MEDS ORDERED: NALOXONE 0.4 MG/ML 1 ML VIAL IV PRN (01:09)
[2018-07-26] MEDS ORDERED: SIMETHICONE 80 MG CHEWABLE PO PRN (01:09)
[2018-07-26] MEDS ORDERED: ACETAMINOPHEN TAB 325 MG TAB PO PRN (01:09)
[2018-07-26] MEDS ORDERED: HYDROcodone/APAP 5-325MG 1 EACH TAB PO PRN (01:09)
[2018-07-26] MEDS ORDERED: diphenhydrAMINE 50 MG CAP PO PRN (01:09)
[2018-07-26] MEDS ORDERED: METOCLOPRAMIDE 5 MG/ML 2 ML VIAL IVP PRN (01:09)
[2018-07-26] MEDS ORDERED: ZOLPIDEM 5 MG TAB PO PRN (01:09)
[2018-07-26] MEDS ORDERED: LANOLIN CREAM 5 GM TUBE TOPICAL PRN (01:09)
[2018-07-26] MEDS ORDERED: diphenhydrAMINE 50 MG/ML 1 ML VIAL IVP PRN ×2 (01:09)
[2018-07-26] MEDS ORDERED: diphenhydrAMINE 25 MG CAP PO PRN (01:09)
[2018-07-26] MEDS ORDERED: HYDROcodone/APAP 7.5-325MG 1 EACH TAB PO PRN (01:09)
[2018-07-26] MEDS ORDERED: IBUPROFEN 600 MG TAB PO PRN (01:09)
[2018-07-26] MEDS ORDERED: ONDANSETRON 4 MG/2 ML VIAL IVP PRN (01:09)
[2018-07-26] MEDS ORDERED: OXYTOCIN 20 UNITS/1000 ML NS 1,000 ML IV SCH (01:15)
--- NOTE | 2018-07-26 01:18 | P.OP ---
Date of Procedure: 07/26/18 Preoperative Diagnosis: #1. 34-4/7 weeks intrauterine , active labor #2. Spontaneous rupture of membranes #3. Breech presentation Postoperative Diagnosis: Same Procedure(s) Performed: #1. Primary low-transverse section Anesthesia: JAUN Surgeon: Stuart Mary Fire Control Officer #1: Sarthak Robbins Estimated Blood Loss (ml): 400 IV fluids (ml): 800 Urine output (ml): 250 Pathology: other (Placenta) Condition: stable Disposition: floor Operative Findings: Preoperatively, the patient presented in active labor and was discovered at approximate 7-8 cm of dilation to be in breech presentation. This was confirmed by bedside ultrasound performed by myself. She was taken the operating room where she was delivered of a viable 5 lbs. 1 oz. baby girl with Apgars of 5 at 1 minute, 8 at 5 minutes, and 8 at 10 minutes in the raudel breech presentation with standard breech maneuvers. The placenta was delivered manually, intact, and grossly normal with a grossly normal three-vessel cord. The uterus, tubes, and ovaries were entirely normal to inspection. Description of Procedure: The patient was prepped and draped in usual fashion and then general endotracheal anesthesia was administered by the anesthesiologist. A Pfannenstiel incision was made and extended into the abdominal cavity without difficulty and rapidly. The bladder peritoneum was noted to be distal to the site of incision and was left intact. A 2 cm incision was made in the transverse plane of the lower uterine segment to enter the uterus at which time the fetus was noted to be in breech presentation. The breech was fairly deep in the pelvis and was delivered up and through the incision and the infant delivered onto the field with standard breech maneuvers without difficulty. The cord was doubly clamped, cut, and the passed resuscitative measures with weight and Apgars as noted above. The boring machine operator vertical was in attendance at the delivery. A segment of cord was then doubly clamped, cut, and set aside should cord gases become necessary. The placenta was delivered manually and intact as noted above. The uterus was exteriorized and the interior cavity of the uterus swept of any remaining placental or membranous fragments. The margins of the incision were grasped with Vanegas clamps and the incision closed in 2 layers. First layer was a running locking stitch of 0 chromic catgut followed by a running imbricating stitch of 0 chromic catgut, each from margin to margin. The posterior cul-de-sac was suctioned with a guard and the uterine and ovarian findings were normal as noted above. The uterus was replaced within the abdominal cavity and the gutters were swept of any remaining blood, fluid, or clot. The incision was reexamined and any small points of bleeding made hemostatic with the Bovie. Hemostasis appeared to be excellent following this. The parietal peritoneum was loosely reapproximated and layer of muscles were examined and found to be hemostatic. The fascia was closed with a single running stitch of 0 Vicryl proceeding from margin to margin. The subcutaneous tissues were irrigated, made hemostatic with the Bovie , and not reapproximated as they were less than 2 cm in depth. The skin was reapproximated with a running subcuticular stitch of 4-0 Vicryl from margin to margin. This was followed by half-inch Steri-Strips placed with Mastisol. Estimated blood loss for the entire case was approximately 400 mL. There were no complications. All sponge, instrument, and needle counts were correct. The patient tolerated the procedure well and proceeded to the recovery room in stable condition. Both mother and are resting comfortably in recovery of the has been taken to the special care nursery for issues regarding prematurity and will likely be transferred to a tertiary care institution as gestation is less than 35 weeks.
[2018-07-26 01:42] VITALS: BMI 27.4
[2018-07-26] MEDS: HYDROmorphone PCA 5 MG/25 ML SYRINGE IV PRN ×2 (02:17→07:06)
[2018-07-26] MEDS: LACTATED RINGERS 1,000 ML IV SCH ×2 (02:43→04:58)
[2018-07-26] MEDS ORDERED: PENICILLIN G POTASSIUM 2,500,000 UNIT in DEXTROSE 5% IN WATER 100 ML IVPB SCH ×2 (04:00)
[2018-07-26] MEDS ORDERED: ACETAMINOPHEN IV (For NPO) 1,000 MG in EMPTY BAG 1 BAG IVPB STA (04:45)
[2018-07-26] MEDS: KETOROLAC 30 MG/ML 1 ML VIAL IVP PRN ×2 (04:54→20:13)
[2018-07-26] MEDS: SENNOSIDES-DOCUSATE SODIUM 1 EACH TAB PO SCH ×2 (08:15→20:13)
[2018-07-27] MEDS: KETOROLAC 30 MG/ML 1 ML VIAL IVP PRN (04:05)
[2018-07-27] MEDS: SENNOSIDES-DOCUSATE SODIUM 1 EACH TAB PO SCH (08:07)
[2018-07-27 08:58] VITALS: TEMP 98.4
--- NOTE | 2018-07-27 09:04 | P.DS ---
Providers Date of admission: 07/25/18 23:51 Expected date of discharge: 07/27/18 Attending physician: Stuart Mary Primary care physician: Stated None - Discharge Diagnosis(es) (1) premature rupture of membranes Current Visit: Yes Status: Acute (2) 34 weeks gestation of Current Visit: Yes Status: Acute (3) Active labor Current Visit: Yes Status: Acute (4) Breech presentation Current Visit: Yes Status: Acute (5) Status post section Current Visit: Yes Status: Acute Hospital Course: The patient is a 28-year-old 1 para 0 admitted at 34-4/7 weeks in active labor with documented spontaneous rupture of membranes. She is recent transfer to this area from [facility]. Her had been uncomplicated until arrival here which time she appeared to experience nephrolithiasis. In either case, this episode resolved and she presented in active labor as noted above. She made rapid progress from 4 cm to 87 m at which time digital cervical examination indicated a non-vertex presentation. Bedside ultrasound confirmed this finding. She was taken the operating room where she was delivered of a viable 5 lbs. 1 oz. baby girl with Apgars of 5 at 1 minute 8 at 5 minutes and 8 at 10 minutes. The infant was ultimately transferred to [place] for issues of prematurity. The patient's postoperative course was unremarkable with vital signs remaining stable and her temperature was afebrile throughout. She was deemed stable for discharge on postoperative day 1 and was discharged home to follow-up in the office in 2 weeks for an incision check and 6 weeks routinely. Discharge instructions included calling for any significantly increased bleeding or foul-smelling lochia, significantly increased fever abdominal pain, perineal complaints, breast complaints, incisional complaints, or anything else that concerned her. She is additionally instructed to have nothing in the vagina for at least 6 weeks time to include intercourse and to abstain from any heavy lifting over the same period of time. She was lastly instructed to do no driving until off of all pain medications or 2 weeks' time, whichever came first. She understood her instructions and agrees to follow up as noted above. Discharge medications included a prescription for Tylenol 3, 1-2 by mouth every 6 hours when necessary pain, #30 dispensed with no refills. She otherwise was to use over- the-counter analgesic pain medications as well as continued vitamins as she has opted to breast-feed. Maternal blood type is O+ and rubella status is immune. Postoperative hemoglobin and hematocrit are pending at this time. Procedures: #1. Primary low transverse section Patient Condition at Discharge: Stable Plan - Discharge Summary New Discharge Prescriptions: No Action Pnv No.95/Ferrous Fum/Folic AC [ Multivitamin Tablet] 1 each PO DAILY Acetaminophen-Codeine 300-30mg [Tylenol w/codeine #3] 2 tab PO Q6H PRN PRN Reason: Pain Discharge Medication List Pnv No.95/Ferrous Fum/Folic AC [ Multivitamin Tablet] 1 each PO DAILY [History] Acetaminophen-Codeine 300-30mg [Tylenol w/codeine #3] 2 tab PO Q6H PRN 07/14/18 [History] Follow up Appointment(s)/Referral(s): Stuart Mary MD [STAFF PHYSICIAN] - 2 Weeks Discharge Disposition: HOME SELF-CARE
[2018-07-27 09:20] LABS: Basophils % (A) 0 %; Eosinophils # (A) 0.2 k/uL (0-0.7); Eosinophils % (A) 1 %; HCT 31.1 % (34.0-46.0); HGB 9.9 gm/dL (11.4-16.0); Lymphocytes # (A) 1.3 k/uL (1.0-4.8); Lymphocytes % (A) 9 %; MCH 28.2 pg (25.0-35.0); MCHC 31.9 g/dL (31.0-37.0); MCV 88.3 fL (80.0-100.0); Mean Platelet Volume 7.6; Monocytes # (A) 0.9 k/uL (0-1.0); Monocytes % (A) 6 %; Neutrophils # (A) 13.1 k/uL (1.3-7.7); Neutrophils % (A) 83 %; Platelet Count 336 k/uL (150-450); RBC 3.52 m/uL (3.80-5.40); RDW 14.1 % (11.5-15.5); WBC 15.7 k/uL (3.8-10.6)
[2018-07-27 12:31] VITALS: BP 122/79; PULSE 110; RESP 18
== END 2018-07-27 11:55 | disposition home or self-care (01) | DRG 766 ==
LOC: FBPOP 23:38 → 4FBP 23:51
PROVIDERS: ADMIT Obstetrics & Gynecology; ATTEND Obstetrics & Gynecology
PROC: 10D00Z1 Extraction of Products of Conception, Low, Open Approach (ICD-10-PCS; principal; 2018-07-26 00:25)
DX: O42.013 Preterm premature rupture of membranes, onset of labor within 24 hours of rupture, third trimester (principal); O32.1XX0 Maternal care for breech presentation, not applicable or unspecified; O99.52 Diseases of the respiratory system complicating childbirth; J45.909 Unspecified asthma, uncomplicated; Z3A.34 34 weeks gestation of pregnancy; Z37.0 Single live birth; Z87.442 Personal history of urinary calculi; Z79.899 Other long term (current) drug therapy; Z83.3 Family history of diabetes mellitus
CPT/HCPCS: 59025; 84112; 85025; 86850; 86900; 86901; 88307; 99213